=== PATIENT | female | born 1950 | race Two or more races ===

== ENCOUNTER 2022-03-02 11:04 | Outpatient (CLI) | payer OTHER | END 2022-03-02 11:14 | disposition home or self-care (01) | LOC: RAD 11:04 | PROVIDERS: ATTEND Orthopaedic Surgery | DX: S83.201A Bucket-handle tear of unspecified meniscus, current injury, left knee, initial encounter (principal); M54.50 Low back pain, unspecified; M25.561 Pain in right knee; M25.562 Pain in left knee | CPT/HCPCS: 73718 ==

== ENCOUNTER 2022-03-03 08:00 | Outpatient (CLI) | payer OTHER | END 2022-03-03 08:02 | disposition home or self-care (01) | LOC: NUCLEAR 08:00 | PROVIDERS: ATTEND Orthopaedic Surgery | DX: C92.41 Acute promyelocytic leukemia, in remission (principal) | CPT/HCPCS: 78306; A9503 ==